=== PATIENT | female | born 1955 | race Caucasian/White ===

== ENCOUNTER 2019-02-15 14:07 | Outpatient (CLI) | payer OTHER ==
[2019-02-15 17:44] LABS: HGB - HEMOGLOBIN 12.8 g/dL (12.0-16.0); MEAN CORPUSCULAR HEMOGLOBIN 30.5 pg (27.0-31.0); MEAN CORPUSCULAR HGB CONC 33.8 g/dL (32.0-36.0); MEAN CORPUSCULAR VOLUME 90.3 fL (81.0-99.0); MEAN PLATELET VOLUME 8.8 fL (7.9-10.8); RED BLOOD COUNT 4.2 10^6/uL (4.20-5.40); RED CELL DISTRIBUTION WIDTH 13.4 % (12.0-15.0); WHITE BLOOD COUNT 6.5 x10^3/uL (4.8-10.8)
[2019-02-15 18:02] LABS: ALBUMIN 3.9 g/dL (3.2-5.5); ALBUMIN/GLOBULIN RATIO 1.6 (1.0-2.2); BILIRUBIN,TOTAL 0.4 mg/dL (0.2-1.0); CALCIUM 9.1 mg/dL (8.5-10.3); CREATININE 0.7 mg/dL (0.4-1.0); TOTAL PROTEIN 6.3 g/dL (6.7-8.2)
[2019-02-15 18:12] LABS: THYROID STIMULATING HORMONE 1.88 uIU/mL (0.34-5.60)
[2019-02-15 18:18] LABS: FERRITIN 20.1 ng/mL (11.0-306.8)
== END 2019-02-15 14:08 | disposition home or self-care (01) ==
LOC: LAB.F 14:07
PROVIDERS: ATTEND Internal Medicine
DX: R53.83 Other fatigue (principal); Z86.2 Personal history of diseases of the blood and blood-forming organs and certain disorders involving the immune mechanism
CPT/HCPCS: 36415; 80053; 82728; 84443; 85027

== ENCOUNTER 2019-02-22 09:10 | Outpatient (CLI) | payer OTHER ==
[2019-02-22 18:26] LABS: HB2 TOTAL 14.8 g/dL; HEMOGLOBIN A1C 0.56 g/dL; HEMOGLOBIN A1C % 5.6 % (4.6-6.2)
== END 2019-02-22 09:11 | disposition home or self-care (01) ==
LOC: LAB.F 09:10
PROVIDERS: ATTEND Internal Medicine
DX: R73.02 Impaired glucose tolerance (oral) (principal)
CPT/HCPCS: 36415; 83036

== ENCOUNTER 2023-11-29 11:37 | Outpatient (CLI) | payer MEDICARE | END 2023-11-29 11:38 | disposition home or self-care (01) | LOC: LAB.S 11:37 | PROVIDERS: ATTEND Internal Medicine Rheumatology | DX: R76.8 Other specified abnormal immunological findings in serum (principal); M79.641 Pain in right hand | CPT/HCPCS: 36415; 85651; 86140 ==

== ENCOUNTER 2024-01-31 12:52 | Outpatient (CLI) | payer MEDICARE ==
--- NOTE | 2024-02-09 09:20 | Mammography Report ---
BILATERAL DIGITAL SCREENING MAMMOGRAM 3D/2D WITH EXAGGERATED CC: 01/31/2024 CLINICAL: Routine screening. Family history of breast cancer. No prior exams were available for comparison. Both breasts are heterogeneously dense, which may obscure small masses (category c / 51-75% glandular tissue). No significant masses, calcifications, or other findings are seen in either breast. IMPRESSION: NEGATIVE There is no mammographic evidence of malignancy. A 1 year screening mammogram is recommended. Based on the Tyrer Cuzick model (a risk assessment model) the patient's lifetime risk is 16.6% and he r 10 year risk is 9.0%. According to the ACR, ACS, and NCCN guidelines, an annual breast MRI exam ethan ng with mammogram is recommended if the patient's lifetime risk is 20% or greater. This exam was interpreted at Station ID: [id number]. NOTE: For mammograms, a report in lay terms will be sent to the patient. Approximately 15% of breast malignancies will not be visualized mammographically. In the management of a palpable breast mass, a negative mammogram must not discourage biopsy of a clinically suspicious lesion. Electronically Signed By: Lynda Rice M.D., Ph.D. eb/marcell:02/09/2024 09:16:30 letter sent: No_Letter ACR BI-RADS Category 1: Negative 3341F PARENCHYMAL PATTERN: (D) - The breast(s) demonstrate(s) heterogeneously dense fibroglandular parenchy ma. BI-RADS CATEGORY: (1) - 1 RECOMMENDATION: (ANNUAL) - Recommend routine annual screening mammography. [id number] 1 year screening LATERALITY: (B)
== END 2024-01-31 12:53 | disposition home or self-care (01) ==
LOC: DI.S 12:52
DX: Z12.31 Encounter for screening mammogram for malignant neoplasm of breast (principal); Z80.3 Family history of malignant neoplasm of breast; R92.333 Mammographic heterogeneous density, bilateral breasts